=== PATIENT | male | born 1970 | race Two or more races ===

== ENCOUNTER 2016-05-22 14:54 | Observation (INO) | payer OTHER ==
[~2016-05-22] VITALS: Ht 170.2 cm; Wt 75.2 kg
[2016-05-22] VITALS (9 sets, daily range): BP systolic 107–143; BP diastolic 66–90; PULSE 59–78; RESP 14–20; O2SAT 97–100
--- NOTE | 2016-05-22 15:10 | ED.REPORT ---
HPI-Chest Pain 40 and Over Date of Service May 22, 2016 ED Provider: Shahnaz Fletcher MD The patient is a 45 year old male who was sent to the emergency department from [facility] for a positive troponin of 0.320. The patient has experienced intermittent chest tightness with exertion over the last 4-6 weeks. The pain is located to the right-side of his chest and radiates into his right shoulder. He has also noticed shortness of breath with the pain. His symptoms are resolved with rest. His last episode was 10 minutes ago. He denies nausea, diaphoresis, lower extremity swelling. He is a former smoker and quit 10 years ago. He denies history of hypertension or diabetes. Nursing Notes Stated Complaint: CHEST PAIN Chief Complaint: Chest Pain Nursing Notes Reviewed: Yes Allergies: Coded Allergies: No Known Allergies (Unverified , 05/22/16) Scheduled Krill Oil/Allen-3/Dha/Epa (Fish Oil with Krill Softgel) 1 Each Capsule.dr 1 EACH PO DAILY REMEMBERS MAYBE 1X/WEEK Multivit with Calcium,Iron,Min (Therapeutic M) 1 Each Tablet 1 EACH PO DAILY REMEMBERS MAYBE 1X/WEEK Scheduled PRN Acetaminophen (Acetaminophen) 325 Mg Tablet 235-650 MG PO Q4H PRN PRN BACK PAIN General Time Seen by MD: 15:06 Chief Complaint Chest pain Hx Obtained From: Patient, Spouse Arrived By: Walk-in Sudden in Onset?: No Onset Occurred: More than a week ago... (4 weeks) Symptom Duration: Intermittent Location: : Chest right Quality: Painful (tightness) Radiation: : Shoulder right Migration/Movement: Reports: None Severity: Current: Moderate Severity: Maximum: Severe Recent Healthcare: No recent hospitalization, Recent doctor visit Similar Sx Previous: Yes Past Medical History Past Medical History None Family History Noncontributory Smoking History Former Smoker Social History Other Social History: Good social support, , Local resident Ambulatory Status Independent Review of Systems Respiratory: Reports: Dyspnea on exertion, Shortness of breath Cardiovascular: Reports: Chest pain GI: Denies: Nausea Musculoskeletal: Denies: Extremity swelling Skin: Denies Diaphoresis Complete sys rev & neg: except as marked. Physical Exam Initial Vital Signs Vital Signs (First) Date Time Temp Pulse Resp B/P Pulse Ox O2 Delivery O2 Flow Rate FiO2 05/22/16 14:56 35.6 72 16 122/78 97 Room Air Initial VS: Reviewed Head / Eyes: Atraumatic, Normocephalic, PERRL ENT: Mucous membranes moist, Conjunctiva normal, No scleral icterus Neck: Supple, Non-tender, Full range of motion Lymphatic: No lymphadenopathy Extremities: Vascular intact, Neuro intact, No swelling, No tenderness Skin: Warm, Dry, No cyanosis Neurologic: Alert, Oriented, Nonfocal Psychiatric: Mood/affect normal, Behavior normal, Normal thought content General/Constitutional: Awake, Alert, No acute distress, Well appearing Respiratory / Chest: Atraumatic, Breath sounds NL, Breath sounds = bilat, No respiratory distress, No rales, No rhonchi, No wheezing, No stridor, No chest tenderness Cardiovascular: Heart rate NL, Regular rhythm, Heart sounds NL, No gallop, No murmurs, No rubs, Peripheral circulation NL, Pulses = bilaterally, No gross BP differential Abdomen: Atraumatic, Soft, Non-tender, McBurney's non-tender, No guarding, No rebound, BS normoactive, No distention, No hernia, No palpable mass Interpretation & Diagnostics Lab Results Interpretation Result Diagram: 05/22/16 1603 05/22/16 1603 Test 05/22/16 16:03 White Blood Count 8.4th/mm3 (3.8-10.1) Red Blood Count 4.46mil/mm3 (4.40-5.80) Hemoglobin 12.5g/dL (13.8-17.2) Hematocrit 37.1% (41.0-50.0) Mean Corpuscular Volume 83.2fL (81-100) Mean Corpuscular Hemoglobin 28.0pg (27.0-35.0) Mean Corpuscular Hemoglobin Concent 33.7% (32.0-37.0) Red Cell Distribution Width 13.6% (12.3-15.4) Platelet Count 287bil/L (150-400) Neutrophils (%) (Auto) 48.6% (40-74) Lymphocytes (%) (Auto) 30.2% (14-46) Monocytes (%) (Auto) 7.9% (4-12) Eosinophils (%) (Auto) 12.5% (0-5) Basophils (%) (Auto) 0.6% (0-3) Sodium Level 137mEq/L (134-144) Potassium Level 4.3mEq/L (3.5-5.2) Chloride Level 100mEq/L (97-108) Carbon Dioxide Level 26mmol/L (18-29) Blood Urea Nitrogen 16mg/dL (6-24) Creatinine 0.90mg/dL (0.76-1.27) Estimat Glomerular Filtration Rate 97mL/min (>59) Glucose Level 106mg/dL (60-99) Calcium Level 9.3mg/dL (8.5-10.1) Magnesium Level 1.9mg/dL (1.6-2.6) Total Bilirubin 0.2mg/dL (0.0-1.2) Aspartate Amino Transf (AST/SGOT) 20U/L (0-50) Alanine Aminotransferase (ALT/SGPT) 18U/L (0-44) Alkaline Phosphatase 69U/L (25-150) Troponin T 0.260ug/L (0.0-0.011) Total Protein 7.4g/dL (6.4-8.4) Albumin 4.1g/dL (3.4-5.0) Hold Quinones Top Tube Received (Received) ECG Interpretation ECG Interpretation: Sinus rhythm with a rate of [address] elevations Very slight ST depressions in V4-V6 T wave inversions in aVR and aVL Time: 15:10 Interpreted by: ED physician X-Ray Chest Interpretation Chest Xray Interpretation: IMPRESSION: No acute process. Dictated by: Ingris Sweeney M.D. on 05/22/2016 at 15:36 Interpretation / Wet Read by: Interpret - Radiologist Re-Eval/Medical Decision Med Decision/Clinical Course 45-year-old male with recent diagnosis of hyperlipidemia sent here from outside facility for elevated troponin. Intermittent chest pain for the last 4-6 weeks worse with exertion. Differential diagnosis includes but is not limited to non- ST elevation VT versus stable versus unstable angina versus ST elevation VT. EKG does not show ST elevation VT, however, patient does have positive troponin. I discussed the case with crime scene photographer who requested heparin and Plavix, in addition to aspirin, which I have given. The patient has been accepted by hospitalist for admission for non-ST elevation VT. He is aware and amenable to plan at this time. Source of Hx: Old records, Family Re-Evaluation/Progress Note: Rechecked the patient. Discussed plan for admission. All questions were addressed. Consultation #1: Referral / Consult Name: Jordy Arzola MD Consulted With: Cardiology Requested Call at: 17:02 Call Returned at: 17:03 Raw Sampler: Agrees with eval, Agrees with plan Note: He was only on-call for NSTEMI patient's until 1600. He would like us to call the new on-call physician. Consultation #2: Referral / Consult Name: Mitch Norris MD Consulted With: Cardiology Requested Call at: 17:04 Call Returned at: 17:10 Raw Sampler: Agrees with eval, Agrees with plan Consultation #3: Referral / Consult Name: Delfin Crystal MD Consulted With: Hospitalist Requested Call at: 17:11 Call Returned at: 17:18 Raw Sampler: Will see patient, Agrees with eval, Agrees with plan, Accepts admit Counseled Regarding: Diagnosis, Lab results, Need for admission Discharge & Departure Primary Impression: NSTEMI (non-ST elevated myocardial infarction) Disposition: ADMITTED TO HOSPITAL Discharge Condition All VS Reviewed: Yes Condition: Stable Scribe Attestation Portions of this note were transcribed by Kallie Marquez. I, Dr. Fowler personally performed the history, physical exam and medical decision-making; I reviewed and confirmed the accuracy of the information in the transcribed note. Signed by: Carmelo Baldwin, 05/22/2016 and [id number]. Shahnaz Fletcher MD May 22, 2016 15:10 Kallie Marquez May 22, 2016 15:20
--- NOTE | 2016-05-22 15:38 | DRSVH ---
PROCEDURE: X-RAY CHEST ONE VIEW, PORTABLE ([id number]) INDICATIONS: CHEST PAIN TECHNIQUE: One view of the chest was acquired. COMPARISON: None. FINDINGS: Surgical changes and devices: None. Lungs and pleura: No pleural effusions or pneumothorax. Lungs are clear. Mediastinum: Mediastinal contours appear normal. Heart size is normal. Bones and chest wall: No suspicious bony lesions. Overlying soft tissues appear unremarkable. IMPRESSION: No acute process. Dictated by: Ingris Sweeney M.D. on 05/22/2016 at 15:36 Approved by: Ingris Sweeney M.D. on 05/22/2016 at 15:36
[2016-05-22 16:16] LABS: BASOPHILS % (AUTO) 0.6 % (0-3); EOSINOPHILS % (AUTO) 12.5 % (0-5); MONOCYTES % (AUTO) 7.9 % (4-12); Mean Corpuscular Volume 83.2 fL (81-100); NEUTROPHILS % (AUTO) 48.6 % (40-74); Platelet Count 287 bil/L (150-400)
[2016-05-22 16:47] LABS: Magnesium 1.9 mg/dL (1.6-2.6)
[2016-05-22 16:49] LABS: TROPONIN T 0.26 ug/L (0.0-0.011)
[2016-05-22] MEDS ORDERED: Heparin 25K Unit/500mL 0.45 NS 25,000 UNIT in IV Premix 1 EACH IV ONE (17:05)
[2016-05-22] MEDS ORDERED: Heparin 5,000 Unit/mL Inj IVPUSH ONE (17:05)
[2016-05-22] MEDS ORDERED: 0.9% Sodium Chloride 1,000 ML IV SCH (17:22)
[2016-05-22] MEDS ORDERED: KRIL1CAP10 PO (17:23)
[2016-05-22] MEDS ORDERED: ACET325T51 PO (17:24)
[2016-05-22] MEDS ORDERED: MULT-140 PO (17:24)
[2016-05-22] MEDS ORDERED: Ondansetron 2 mg/mL 2 mL Inj IVPUSH PRN (17:25)
[2016-05-22] MEDS ORDERED: Polyethylene Glycol (PEG) 17 Gm Powder PO PRN (17:25)
[2016-05-22] MEDS ORDERED: Senna-Docusate 8.6-50 mg Tablet PO PRN (17:25)
[2016-05-22] MEDS ORDERED: Alum-Mag Hydrox-Simeth 30 mL Suspension PO PRN (17:25)
[2016-05-22 18:04] LABS: Creatine Kinase 146 U/L (21-232)
[2016-05-22] MEDS ORDERED: Heparin 5,000 Unit/mL Inj IVPUSH PRN (18:55)
[2016-05-22] MEDS ORDERED: Heparin 25K Unit/500mL 0.45 NS 25,000 UNIT in IV Premix 1 EACH IV SCH (18:55)
--- NOTE | 2016-05-22 19:25 | NUR ---
ED to PCC Pt arrived from ED to PCC at approximately 1835. Pt able to stand and walk to bed without assist. VSS. at bedside. asks to be called to translate for with speaker phone. Suggested our food service aide. unable to stay this night requests to be called. Skin assessment done no visible guardado or bruising. Pt denies tightness or chest pain at this time. Pt denies SOB. Transferred care to police shift commander at 1845. Care continues.
--- NOTE | 2016-05-22 20:40 | PCM.HPMED ---
Subjective Date of Service May 22, 2016 Primary Provider: Admitting Physician: Delfin Crystal MD Primary Care Physician: Francisco Cage MD Attending Physician: Delfin Crystal MD Chief Complaint: Chest pain History of Present Illness: 45 year old male who was sent to the emergency department from [facility] for a positive troponin of 0.320. The patient has experienced intermittent chest tightness with exertion over the last 4-6 weeks. The pain is located to the right-side of his chest and radiates into his right shoulder. He has also noticed shortness of breath with the pain. His symptoms are resolved with rest. His last episode was 10 minutes ago. He denies nausea, diaphoresis, lower extremity swelling. He is a former smoker and quit 10 years ago. He denies history of hypertension or diabetes. Review of Systems: Gen.: No fevers chills weight loss weight gain Eyes: no visual disturbances or blurring vision HEENT: No nose/throat drainage, no pain in ears or throat, no hearing loss bloody nose last week Lymph: No lymph nodes noted Cardiac: No orthopnea, PND, palpitations , pedal edema + chest pain, dyspnea on exertion and exertional pain Pulmonary: no cough, wheezing or bringing up of sputum GI: No anorexia nausea vomiting blood or black in the stool : no dysuria hematuria urinary frequency or decrease in urine output Musculoskeletal: Joint swelling no joint pain no new muscle aches or back pain Neuro: No syncope, seizures no loss of consciousness no new focal weakness, numbness or tingling Psychiatric: New new anxiety insomnia or depression Endocrine: No new heat or cold intolerances polyuria or polydipsia Hematology: No lymphadenopathy or easy bleeding or bruising noted skin: No new rashes, stasis dermatitis Allergies Coded Allergies: No Known Allergies (Unverified , 05/22/16) Home Medications Krill Oil/King-3/Dha/Epa (Fish Oil with Krill Softgel) 1 Each Capsule.dr 1 EACH PO DAILY REMEMBERS MAYBE 1X/WEEK Multivit with Calcium,Iron,Min (Therapeutic M) 1 Each Tablet 1 EACH PO DAILY REMEMBERS MAYBE 1X/WEEK Scheduled PRN Acetaminophen (Acetaminophen) 325 Mg Tablet 235-650 MG PO Q4H PRN PRN BACK PAIN PMH PMH none Surgical history none Social history patient does not smoke, drinks 2 beers a month Family history no family history of early coronary artery disease hypertension or diabetes Social History Hx Alcohol Use: Yes (VERY RARE) Hx Substance Use: No Smoking Status: Former Smoker Exam Vital Signs Vital Sign - Last Date Time Temp Pulse Resp B/P Pulse Ox O2 Delivery O2 Flow Rate FiO2 05/22/16 18:45 36.8 60 128/86 100 Room Air 05/22/16 18:23 18 Exam Gen.- A+ O 3 no apparent distress. Well-nourished male sitting in bed Eyes- open conjunctiva clear, pupils equal nonicteric Mouth- oral mucosa moist, no exudate ENT- ears normal, nose normal Neck- supple/trach midline CVS- RRR no murmur or gallop Lungs- CTA GI- NABS/NT soft Musc- moving 4 no obvious deformity Neuro- cranial nerves II through XII intact to gross examination, nonfocal Skin- warm and dry, no rashes/lesions/wounds noted Psych- pleasant and appropriate, Lab and Diagnostics Labs LFTs WNL, troponin 0.260 with normal CK/MB, TSH 0.532 Result Diagram: 05/22/16 1603 05/22/16 1603 X-Rays, CTs and MRIs CXR normal 12-lead ECG Concurrently reviewed by me sinus with a rate of 70 QTc [address] segment changes Assessment & Plan 45-year-old male normal EKG and CK/MB but elevated troponin with chest pain and dyspnea with exertion ongoing. Patient is started on a heparin drip in the emergency room and chest pain-free at rest. One could make a reasonable argument for taking him directly to cath based on his story however I will go ahead and order stress test unless it is canceled prior to being obtained because cardiology sees the patient and takes him for catheterization. He got a loading dose of Plavix in the emergency room I am not going to continue it at this point in time. This does not seem to be ACS or unstable angina but chest pain that has a strong likelihood by history of being cardiac in origin. My understanding was cardiology was consult that from the emergency room but has not yet seen the patient. Chest pain- as above aspirin, beta gina, atorvastatin Prophylaxis- DVT patient's already on a heparin drip Disposition- from home full code. I have not yet ordered a diet for this patient as initially it was built to me as something that might go directly to cath, and now that is after midnight and I want to do a stress test on him I am not going to order a diet for fear that we will feed him breakfast. Delfin Crystal MD May 22, 2016 20:39
[2016-05-22 22:32] LABS: TROPONIN T 0.278 ug/L (0.0-0.011)
[2016-05-22 23:23] LABS: APPEARANCE,URINE CLEAR (CLEAR,HAZY); COLOR,URINE YELLOW (YELLOW); OCCULT BLOOD,URINE NEGATIVE (NEGATIVE); PH,URINE 6.5 (5.0-8.0); UROBILINOGEN,URINE NORMAL (NORMAL)
[2016-05-23] VITALS (19 sets, daily range): BP systolic 93–155; BP diastolic 59–104; PULSE 51–70; RESP 9–20; O2SAT 96–100
[2016-05-23] MEDS: Sodium Chloride LOK Flush 10 mL Syringe IVFLUSH SCH ×2 (00:30→08:30)
--- NOTE | 2016-05-23 06:22 | NUR ---
Chest Pain At approximately 0500 pt called to report he was having CP. EKG ordered and no significant changed noted. BP 155/104 HR 70's SpO2 100%. Pt is scheduled for Stress test this am and unable to have nitro before that procedure. Administered 2mg Morphine and effective, no further c/o CP. BP after administration 149/89. Pt is on Heparin gtt as well at 1050 u/hr per cardiac protocol. VSS and Tele SR 60's to 70's
[2016-05-23 07:15] LABS: BASOPHILS % (AUTO) 0.5 % (0-3); MONOCYTES % (AUTO) 7.1 % (4-12); Mean Corpuscular Hemoglobin 28.2 pg (27.0-35.0); Mean Corpuscular Volume 82.6 fL (81-100); NEUTROPHILS % (AUTO) 42.7 % (40-74); Platelet Count 287 bil/L (150-400)
[2016-05-23] MEDS ORDERED: 0.9% Sodium Chloride 1,000 ML IV ONE (12:15)
--- NOTE | 2016-05-23 12:22 | NUR ---
IV/anxiety IV therapy placing 2nd IV in left arm for [employer] sales manager cath procedure this afternoon. Pt anxious, at bedside, asking for SW consult. SW notified. Pt states he can wait till called down to concrete laborer for anxiety medicine. Care continues.
--- NOTE | 2016-05-23 12:38 | CONS ---
[address] [address] CONSULTATION REPORT PATIENT: ISRAEL BLANCO : 1970 MR#: [id number] ADMIT: 05/22/2016 JOB ID: [id number] DATE OF SERVICE: 05/23/2016 CARDIOLOGY CONSULT NOTE: CHIEF COMPLAINT: I was asked by the Hospitalist team to consult on this patient given anginal symptoms. HISTORY OF PRESENT ILLNESS: The patient is a 45-year-old man. He is not on any medications other than fish oil. He tells me he has been having about six weeks of chest discomfort occurring with exertion. He describes it as a chest tightness with some associated shortness of breath with radiation to the right shoulder and chest wall with some associated numbness. This always stops with rest. He has been noticing it getting somewhat worse and went to [facility], and they transferred him here. Since arrival, he has had an elevated troponin, which has not trended upward or downward. He has no chest pain. No chest pressure. He has been put on heparin. He was also given a loading dose of Plavix last night. Prior to six weeks ago, he did not have problems with chest pain, chest pressure, orthopnea, PND, lower extremity edema, palpitations, presyncope, or syncope. PAST MEDICAL HISTORY/PROBLEM LIST: Hyperlipidemia. CURRENT MEDICATIONS: Include: 1. Rowland-3 fish oil. 2. Metoprolol 25 b.i.d. 3. Aspirin 81 mg a day. 4. Heparin protocol. 5. Lipitor 40 q.h.s. 6. Other p.r.n. medications. ALLERGIES: No known drug allergies. SOCIAL HISTORY: No tobacco use. Rare alcohol use. FAMILY HISTORY: No history of early coronary artery disease, hypertension, or diabetes. REVIEW OF SYSTEMS: Overall health: No fevers, chills, night sweats, or weight loss. GI: No problems with ulcers or blood in his stool. : No dysuria, no hematuria. Pulmonary: No history of lung disease. No shortness of breath. Endocrine: No heat or cold intolerance. No history of diabetes mellitus. Neuro: No history of chronic headaches. Heme: No easy bruising or bleeding. Musculoskeletal: No joint swelling or pain. Derm: No rash or skin breakdown. ENT: No sore throat or difficulty swallowing. Ophtho: No vision changes. Psych: No acute issues. All review of systems on 12-point review of systems are negative. PHYSICAL EXAMINATION: Blood pressure is 124/79, heart rate is 50s to 70s. He is afebrile. Sats are 98% on room air. General: In no acute distress. Speaking in full sentences without apparent shortness of breath. Head and neck exam: Normocephalic, atraumatic. Neck: No obvious JV distention. No carotid bruits appreciated. Heart exam: Regular rate and rhythm. No obvious murmurs, gallops, or rubs appreciated. Lungs are clear to auscultation. Back: No CVA tenderness to palpation. Abdomen: Soft, nondistended, nontender. Extremities: Warm, no appreciable edema, 1 to 2+ distal pulses. Skin without breakdown appreciated. Neuro: He is alert and oriented x3. Gait is not tested. Psych: Appropriate mood and affect. ENT: No erythema of the oropharynx. Ophtho: Vision is grossly normal. LABORATORIES: Show white count 8.5, H and H of 13.6 and 39.8, platelets 287,000, mildly elevated eosinophils. Chemistry today shows sodium 139, chloride and bicarb of 102 and 21, respectively, BUN and creatinine of 13 and 0.88. Troponins in the range of 0.28 to 0.29. DIAGNOSTIC STUDIES: EKG shows sinus rhythm with ST changes in the lateral leads. Imaging shows a chest x-ray that shows no acute process. IMPRESSION: The patient has had approximately six weeks of exertional anginal symptoms. He finally came in with worsening of the symptoms, although he has no chest discomfort at rest. Troponins are elevated and have not changed significantly. He has EKG abnormalities. PLAN: 1. Continue with current medications. 2. Will arrange for an echocardiogram. 3. I have spoken to him about cardiac catheterization. I have explained the risks and benefits to him. I have also discussed the different types of findings. Nothing to do, multi-vessel disease requiring surgeries, single-vessel disease amenable to stenting. I discussed the different types of stents including bare metal stents and drug-eluting stents. Discussed the different issues with endothelialization, risks of restenosis, as well as duration of Plavix. He denies any symptoms such as bleeding or upcoming surgeries that would make him not able to take Plavix for a year or more. He has no issues financially where he would could not afford to take that medication. 4. I have consented him for cardiac catheterization. Will proceed with this today. I spent one hour reviewing this patient's chart, speaking with the patient and discussing the nature of his current problem and the details of cardiac cath. I answered his questions. SHEFALI
[2016-05-23] MEDS ORDERED: 0.9% Sodium Chloride 1,000 ML ONE (12:50)
[2016-05-23] MEDS ORDERED: Heparin 1,000 Units/500 mL NS Premix IV ONE (12:50)
[2016-05-23] MEDS ORDERED: Heparin 1,000 Unit/mL 10 mL Inj ONE (12:51)
[2016-05-23] MEDS ORDERED: Nitroglycerin 50,000 mcg/250 mL D5W Premix IV ONE (12:51)
--- NOTE | 2016-05-23 13:38 | NUR ---
Received Received from floor about 1330 to await heart cath. VSS. IV Heparin restarted per MD order and titrated to 1100units/hr per PTT. Tele SB. Continue to monitor.
--- NOTE | 2016-05-23 13:54 | NUR ---
PCC to [facility] Pt transported to lab animal technologist at approximately 1300. Heparin stopped. Bilateral pulses marked. Pre medications given: Ativan, Benadryl, Famotidine, ASA and NS started. Pt accompanied by to [facility]. [facility] Booklet and Angio/Stent booklet given to pt and . Education given. Ayaka BANEGAS from [facility] called at approximately 1320 pt was bumped, waiting in [facility] for cath procedure. Care continues.
[2016-05-23] MEDS ORDERED: fentaNYL-PF 50 mCg/mL 2 mL Inj ONE (14:38)
--- NOTE | 2016-05-23 15:47 | PCM.PNMED ---
Subjective Date of Service May 23, 2016 Subjective He is doing well. No chest pain. He has a 6 week history of exertional chest pain relieved by rest. No nausea vomiting or diaphoresis. No indigestion or dyspeptic symptoms. No diarrhea or constipation. Exam Vital Signs Vital Sign - Last Date Time Temp Pulse Resp B/P Pulse Ox O2 Delivery O2 Flow Rate FiO2 05/23/16 15:35 53 9 103/61 05/23/16 15:35 98 Room Air 05/23/16 09:20 36.8 Intake and Output 05/22/16 05/22/16 05/23/16 Cumulative From/Thru 15:00 23:00 07:00 05/22/16 14:56 - 05/23/16 06:30 Intake Total 999 ml 300 ml 1299 ml Output Total 650 ml 650 ml Balance 999 ml -350 ml 649 ml Intake Oral 300 ml 300 ml IV Total 999 ml 999 ml Output Urine Total 650 ml 650 ml Exam Alert oriented 3, no distress Anicteric sclerae. Neck supple. Lungs are clear with normal effort. Heart is regular. Abdomen soft nontender Extremities edema good pedal pulses IVs and Medications Medications Reviewed: Medications were reviewed in detail Lab and Diagnostics Result Diagram: 05/23/16 0653 05/23/16 0653 X-Rays, CTs and MRIs CXR normal 12-lead ECG Concurrently reviewed by me sinus with a rate of 70 QTc [address] segment changes Assessment & Plan 45-year-old male normal EKG and CK/MB but elevated troponin with chest pain and dyspnea with exertion ongoing. Patient is started on a heparin drip in the emergency room and chest pain-free at rest. One could make a reasonable argument for taking him directly to cath based on his story however I will go ahead and order stress test unless it is canceled prior to being obtained because cardiology sees the patient and takes him for catheterization. He got a loading dose of Plavix in the emergency room I am not going to continue it at this point in time. This does not seem to be ACS or unstable angina but chest pain that has a strong likelihood by history of being cardiac in origin. My understanding was cardiology was consult that from the emergency room but has not yet seen the patient.(Per history and physical) 1. N STEMI. Continue current medical regimen. Anticipate cardiology will take him to the catheterization lab for an angiogram and possible PCI if appropriate today. We will also assess his lipid profile. 2. DVT prophylaxis is provided by ongoing heparin drip. He is full resuscitation. Pain Evaluation: Adequate Pain Control Resuscitation Status: CPR: Attempt Resuscitation Time spent 30 minute Charles Ohara MD May 23, 2016 15:47
--- NOTE | 2016-05-23 16:03 | NUR ---
Received Received from laborer [facility] about 1530. VSS. Right groin without bleeding or hematoma. Groin precautions reviewed. Verbalizes understanding. Denies pain. NS at 100ml/hr infusing per order. at bedside.
--- NOTE | 2016-05-23 16:21 | DRSVH ---
[facility] [address] [place] [address] Echocardiogram Report Name: ISRAEL BLANCO Study Date: 05/23/2016 Height: 67 in Hospital Exam Location: [facility] Weight: 167 lb Gender: Male BSA: 1.9 m2 : 1970 Age: 45 yrs BP: 141/86 mmHg Reason For Study: Chest pain Performed By: Olesya Medeiros Referring Physician: RUDY SHEFFIELD Interpretation Summary 1. Normal left ventricular size and wall thickness with wall motion abnormalities as noted below. Overall, the EF appears preserved at 55 to 60% 2. Normal right ventricular size and systolic function. 3. No valvular pathology appreciated There is no old study for comparison Procedure: A two-dimensional transthoracic echocardiogram with color flow and Doppler was performed. The study quality was technically good. There is no prior echocardiogram noted for this patient. The patient was in normal sinus rhythm during the exam. Left Ventricle: The left ventricle is normal in size. There is normal left ventricular wall thickness. There is mild proximal septal thickening noted. The ejection fraction is estimated to be 55-60%. Hypokinesis of the basal inferior/inferolateral wall, apical anterior septum and inferior septum and possible mild hypokinesis of the anterior apex. Right Ventricle: The right ventricle is normal size. The right ventricular systolic function is normal. Atria: The left atrial size is normal. Right atrial size is normal. The interatrial septum is intact with no evidence for an atrial septal defect. Mitral Valve: The mitral valve is normal in structure and function. There is no mitral regurgitation noted. Aortic Valve: The aortic valve is trileaflet. The aortic valve opens well. No aortic regurgitation is present. Tricuspid Valve: The tricuspid valve is normal in structure and function. There is a trace or physiologic amount of tricuspid regurgitation. The right ventricular systolic pressure is estimated at 20 mmHg assuming a right atrial pressure of 3 mm Hg. Pulmonic Valve: The pulmonic valve is normal in structure and function. There is no pulmonic valvular regurgitation. Great Vessels: The aortic root is normal size. The dimensions of the ascending aorta are normal. The IVC is of normal diameter and collapses greater than 50% with a sniff. This suggests a low right atrial pressure of 3 mm Hg. Pericardium/ Pleura There is no pericardial effusion. There is no pleural effusion. MMode/2D Measurements & Calculations LVIDd: 5.1 cm LA dimension: 3.8 cm RA long axis Ao root diam LVIDs: 3.5 cm FS: 31.5 % LA A2 area: 16.2 cm RA area Aortic Jxn: 2.7 cm IVSd: 1.2 cm LA A4 area: 15.3 cm asc Aorta Diam LVPWd: 0.83 cm LA length (vol) : 13.2 cm RA vol Ao Arch Diam (Prox LA vol: 42.8 ml : 36.5 ml Trans): 2.5 cm LA vol index RA : 19.5 mm2 IVC diam: 1.4 cm LV call. diameter/BSA LV sys. diameter/BSA RVD1 (basal) RVD2 (mid): 2.6 cm (cm/m^2): 2.7 (cm/m^2): 1.9 Doppler Measurements & Calculations Ao V2 max MV E max pedro MV E/A: 1.3 TR max pedro : 156.1 cm/sec : 80.8 cm/sec Med Peak E' Pedro : 203.1 cm/sec Ao max P.7 mmHg MV A max pedro TR max PG Ao mean P.8 mmHg : 62.7 cm/sec E/E' med: 11.5 : 16.5 mmHg MV P1/2t Lat Peak E' Pedro PA V2 max : 64.3 msec : 82.9 cm/sec E/E' lat: 7.2 PA mean PG E/e' average: 9.4 Pulm A Revs Dur PA Accel Time : 0.15 sec MV A dur: 0.13 sec MV dec time: 0.22 sec MV P1/2t max pedro Ao V2 mean PA V2 mean : 115.2 cm/sec : 60.5 cm/sec MVA(P1/2t) Ao V2 VTI: 38.7 cm : 3.4 cm2 Pulm A Janneth Dur - MV A Dur: -0.02 msec Reading Physician:04:04 PM
--- NOTE | 2016-05-23 17:08 | NUR ---
Care transfer Care transferred to Sam Davidson RN. No change in assessment. Report to Fabi Bhatt RN.
--- NOTE | 2016-05-23 17:44 | NUR ---
Social Work: Screen D: Per EMR review, pt is a 45 year old male admitted for NON STEMI. Pt is [employer] insurance. PCP is Francisco Cage MD. NOK is pt's spouse, Lottie Post. Pt declined advanced directives information during admission. Readmit score is low, 0/8. Pt lives in [place] with his spouse. He is I at baseline. EMR reviewed; pt underwent cardiac cath today. No social work needs or barriers identified at this time. A: Pt who is I at baseline. P: Anticipate pt to discharge home with no sw needs; [employer]OR to continue to follow if needs arise. NERY Doss
[2016-05-23] MEDS ORDERED: 0.9% Sodium Chloride 250 ML BOLUS IV PRN (18:05)
[2016-05-23] MEDS ORDERED: Atropine 1 mg/10 mL (Code) Syringe IVPUSH PRN (18:05)
[2016-05-23] MEDS ORDERED: Ondansetron 2 mg/mL 2 mL Inj IVPUSH PRN (18:05)
[2016-05-23] MEDS ORDERED: Sodium Chloride LOK Flush 10 mL Syringe IVFLUSH PRN (18:05)
[2016-05-23] MEDS ORDERED: 0.9% Sodium Chloride 400 ML (4 HRS) IV ONE (18:05)
--- NOTE | 2016-05-23 18:10 | CS94 ---
[address] [address] DIAGNOSTIC CARDIAC CATHETERIZATION PATIENT: ISRAEL BLANCO : 1970 MR#: [id number] ADMIT: 05/22/2016 JOB ID: [id number] SERVICE DATE: 05/23/2016 PROCEDURES PERFORMED: Left heart catheterization with coronary angiography. INDICATIONS: This is a gentleman with progressive anginal symptoms and labs consistent with a non-ST elevation OK. He presents for further assessment by cardiac catheterization. DESCRIPTION OF PROCEDURE: Informed consent was obtained. Patient brought to the catheterization laboratory. Bilateral groins are prepped and draped in sterile fashion. The right femoral artery was anesthetized with lidocaine. Using modified Seldinger technique and a micropuncture kit access was obtained and a 5-Mauritanian sheath was advanced. Next, a 5-Mauritanian JL4 catheter was advanced over a wire and used to cannulate the left coronary artery and angiographic views obtained. This catheter was removed and a 5-Mauritanian JR4 catheter was advanced over a wire and used to cannulate the right coronary artery and angiographic views obtained. This catheter was removed and an angled pigtail catheter was advanced to the left ventricle under fluoroscopic guidance. Left ventricular pressure readings were obtained and following pullback aortic pressure changes were obtained. The case was ended. Angiography of the right femoral access site was reviewed prior to achieving hemostasis with manual compression and no complications. FINDINGS: CORONARIES: 1. Left main: The left main has some mild proximal disease. 2. Left anterior descending artery: This vessel has moderate disease. In the proximal segment, just after the 1st septal subway car repairer into the mid vessel, the vessel is occluded. It has filling via collaterals. The distal vessel appears reasonable in size and caliber, without obstructive lesions appreciated. There is also a principal diagonal which is a branching vessel which supplies an intermediate distribution. It is diffusely diseased, with evidence of at least 60% stenosis in its mid segment. 3. Circumflex artery: The continuation of the circumflex artery is occluded. There is a first obtuse marginal branch which is a branching vessel which has evidence of a 98% stenosis with KAYLYN II filling distally. 4. Right coronary artery: This vessel was diffusely disease with mild to moderate disease throughout the course of the proximal and mid conduit segment. The PDA has evidence for stenosis estimated in the range of at least 60%. There are [id number] collaterals filling the left anterior descending artery. HD: The end-diastolic pressure is 16 (post contrast). IMPRESSION: Evidence for significant coronary artery disease with an occluded and collateralized left anterior descending artery. Evidence for high-grade stenosis in the obtuse marginal branch and an occluded continuation of the circumflex, which is likely the culprit lesion in this patient's presentation, as well as disease affecting the right coronary artery, most significant in the PDA. PLAN: Given the patient's age and the multivessel nature of the disease, consult will be obtained for possible multi-vessel intervention at a center where the chronically occluded left anterior descending artery may be opened. KASANDRAD
--- NOTE | 2016-05-23 18:18 | NUR ---
DANIEL to [facility] Patient arrived to [facility] via kajal with Sam BANEGAS. Right intact, no swelling, no edema, no bleeding. Bilateral pulses palpable. Pt resting and visiting . Care continues.
[2016-05-23] MEDS ORDERED: Heparin 25K Unit/500mL 0.45 NS 25,000 UNIT in IV Premix 1 EACH IV SCH (22:00)
[2016-05-24 04:06] VITALS: BP 122/85; PULSE 66; RESP 20; O2SAT 98
--- NOTE | 2016-05-24 05:13 | NUR ---
Ambulation Pt off bedrest at 1930; stood to bedside for use of urinal, denied dyspnea or dizziness. Pt resting throughout shift, denied CP. Heparin gtt currently infusing at 1150 units/hr. After standing for weight on scale, pt unsteady on feet per aide; pt encouraged to call for assistance with activity. Pt verbalized understanding. NPO after midnight. MANDO. RA.
[2016-05-24 05:34] VITALS: PULSE 63
[2016-05-24 08:38] VITALS: BP 125/76; PULSE 64; RESP 16; O2SAT 98
[2016-05-24 09:10] VITALS: PULSE 66
--- NOTE | 2016-05-24 09:29 | PCM.PNMED ---
Subjective Date of Service May 24, 2016 Subjective Patient is comfortable. He was noted to have two-vessel disease with LAD and circumflex requesting OCs. Cardiology feels he is better served in [facility] because of a technically difficult LAD stenosis PCI needed. The patient denies chest pain or dyspnea overnight. No anxiety or depression. No nausea or abdominal pain. Exam Vital Signs Vital Sign - Last Date Time Temp Pulse Resp B/P Pulse Ox O2 Delivery O2 Flow Rate FiO2 05/24/16 09:10 66 05/24/16 08:38 36.2 16 125/76 98 Room Air Intake and Output 05/23/16 05/23/16 05/24/16 Cumulative From/Thru 15:00 23:00 07:00 05/22/16 14:56 - 05/24/16 06:22 Intake Total 175 ml 366 ml 1840 ml Output Total 500 ml 800 ml 1950 ml Balance -325 ml -434 ml -110 ml Intake Oral 0 ml 200 ml 500 ml IV Total 175 ml 166 ml 1340 ml Output Urine Total 500 ml 800 ml 1950 ml # Voids 2 2 Exam Neurontin 3, no distress. Fluent speech. Lungs are clear with normal rate and effort Heart his rhythm without murmur gallop or rub Abdomen soft nontender Extremities her feet edema. Radial and pedal pulses. IVs and Medications Medications Reviewed: Medications were reviewed in detail Lab and Diagnostics Result Diagram: 05/24/16 0400 05/24/16 0400 X-Rays, CTs and MRIs CXR normal 12-lead ECG Concurrently reviewed by me sinus with a rate of 70 QTc [address] segment changes Assessment & Plan 45-year-old male normal EKG and CK/MB but elevated troponin with chest pain and dyspnea with exertion ongoing. Patient is started on a heparin drip in the emergency room and chest pain-free at rest. One could make a reasonable argument for taking him directly to cath based on his story however I will go ahead and order stress test unless it is canceled prior to being obtained because cardiology sees the patient and takes him for catheterization. He got a loading dose of Plavix in the emergency room I am not going to continue it at this point in time. This does not seem to be ACS or unstable angina but chest pain that has a strong likelihood by history of being cardiac in origin. My understanding was cardiology was consult that from the emergency room but has not yet seen the patient.(Per history and physical) 1. NSTEMI. Continue current medical regimen. The patient is found to have two -vessel disease and coronary catheterization. The plan is to continue him on his current cardiac regimen and heparin drip and arrange for transfer to [facility] added today or tomorrow when they can accept him. Help is to have PCI there for correction of his two-vessel CAD. 2. DVT prophylaxis is provided by ongoing heparin drip. He is full resuscitation. Disposition is to transfer to [facility] on her able to accept the patient. Pain Evaluation: Adequate Pain Control Resuscitation Status: CPR: Attempt Resuscitation Time spent 30 minutes Charles Ohara MD May 24, 2016 09:29
[2016-05-24] MEDS ORDERED: Heparin 5,000 Unit/mL Inj IVPUSH PRN (11:40)
[2016-05-24 12:16] VITALS: BP 98/62; PULSE 56; RESP 16; O2SAT 99
[2016-05-24 15:50] VITALS: BP 105/64; PULSE 63; RESP 16; O2SAT 99
--- NOTE | 2016-05-24 18:15 | NUR ---
Transfer to [facility] Pt transferred to [facility] at 1820. Pt off floor via stretcher with all of his belongings in the company of the EMS staff and his . EMS was sent with transfer packet. Report called to MAKENZIE Samuels.
--- NOTE | 2016-05-25 08:18 | PCM.DC.MED ---
Discharge Summary Date of Service May 24, 2016 Dates of Hospitalization Date of Hospital Admission May 22, 2016 at 17:50 Date of Discharge: May 24, 2016 Providers: Admitting Physician: Delfin Crystal MD Primary Care Physician: Francisco Cage MD Attending Physician: Delfin Crystal MD Diagnosis at Time of Discharge Diagnosis at Time of Discharge 1. NSTEMI. 2. CAD with an acute stenosis of the circumflex artery and a chronic occlusion of the LAD with collateralization. Consultations Cardiology, Dr. Duval Procedures XRay, CTs & MRIs CXR normal ECG 12 Lead Concurrently reviewed by me sinus with a rate of 70 QTc [address] segment changes Cardiac Echo Impression 1. Normal left ventricular size and wall thickness with wall motion abnormalities as noted below. Overall, the EF appears preserved at 55 to 60% 2. Normal right ventricular size and systolic function. 3. No valvular pathology appreciated Invasive Procedures FINDINGS: CORONARIES: 1. Left main: The left main has some mild proximal disease. 2. Left anterior descending artery: This vessel has moderate disease. In the proximal segment, just after the 1st septal home health nurse into the mid vessel, the vessel is occluded. It has filling via collaterals. The distal vessel appears reasonable in size and caliber, without obstructive lesions appreciated. There is also a principal diagonal which is a branching vessel which supplies an intermediate distribution. It is diffusely diseased, with evidence of at least 60% stenosis in its mid segment. 3. Circumflex artery: The continuation of the circumflex artery is occluded. There is a first obtuse marginal branch which is a branching vessel which has evidence of a 98% stenosis with KAYLYN II filling distally. 4. Right coronary artery: This vessel was diffusely disease with mild to moderate disease throughout the course of the proximal and mid conduit segment. The PDA has evidence for stenosis estimated in the range of at least 60%. There are [id number] collaterals filling the left anterior descending artery. The end-diastolic pressure is 16 (post contrast). IMPRESSION: Evidence for significant coronary artery disease with an occluded and collateralized left anterior descending artery. Evidence for high-grade stenosis in the obtuse marginal branch, which is likely the culprit lesion in this patient's presentation, as well as disease affecting the right coronary artery, most significant in the PDA. PLAN: Given the patient's age and the multivessel nature of the disease, consult will be obtained for possible multi-vessel intervention at a center where the chronically occluded left anterior descending artery may be opened. Brief History 45 year old male who was sent to the emergency department from [facility] for a positive troponin of 0.320. The patient has experienced intermittent chest tightness with exertion over the last 4-6 weeks. The pain is located to the right-side of his chest and radiates into his right shoulder. He has also noticed shortness of breath with the pain. His symptoms are resolved with rest. His last episode was 10 minutes ago. He denies nausea, diaphoresis, lower extremity swelling. He is a former smoker and quit 10 years ago. He denies history of hypertension or diabetes. Hospital Course 45-year-old male normal EKG and CK/MB but elevated troponin with chest pain and dyspnea with exertion ongoing. Patient is started on a heparin drip in the emergency room and chest pain-free at rest. One could make a reasonable argument for taking him directly to cath based on his story however I will go ahead and order stress test unless it is canceled prior to being obtained because cardiology sees the patient and takes him for catheterization. He got a loading dose of Plavix in the emergency room I am not going to continue it at this point in time. This does not seem to be ACS or unstable angina but chest pain that has a strong likelihood by history of being cardiac in origin. My understanding was cardiology was consult that from the emergency room but has not yet seen the patient.(Per history and physical) 1. NSTEMI. Continue current medical regimen. The patient is found to have two -vessel disease and coronary catheterization. The plan is to continue him on his current cardiac regimen and heparin drip and arrange for transfer to [facility] added today or tomorrow when they can accept him. Help is to have PCI there for correction of his two-vessel CAD. 2. DVT prophylaxis is provided by ongoing heparin drip. He is full resuscitation. Disposition is to transfer to [facility] on her able to accept the patient. Hospital course. This patient was admitted with chest pain and a history consistent with exertional angina. It elevated troponins consistent with an NSTEMI. He was taken to the [facility] and found to have two-vessel disease, a more acute circumflex lesion and a chronic collateralized LAD lesion. Cardiology felt that multivessel PCI would be better performed at the Center in [place] with cardiothoracic backup. [facility]. Cardiology was contacted situation was discussed with them and they did accept the patient in transfer. The abdomen A she was also discussed with Dr. Ortiz [facility] hospital[facility] who will be accepting him as primary attending. The patient be transferred ACLS transport with a heparin drip Exam Vital Signs (Last) Date Time Temp Pulse Resp B/P Pulse Ox O2 Delivery O2 Flow Rate FiO2 05/24/16 15:50 36.8 63 16 105/64 99 Room Air Exam Patient was seen and examined and the day of transfer, to [facility] 05/22/16 16:03 05/22/16 22:59 05/23/16 06:53 05/23/16 16:08 Hemoglobin A1c 5.5% (4.8-5.6) Magnesium Level 1.9mg/dL (1.6-2.6) Total Bilirubin 0.2mg/dL (0.0-1.2) Aspartate Amino Transf (AST/SGOT) 20U/L (0-50) Alanine Aminotransferase (ALT/SGPT) 18U/L (0-44) Alkaline Phosphatase 69U/L (25-150) Creatine Kinase MB 5.3ng/mL (0.0-10.4) Creatine Kinase MB % % (0.0-5.0) Total Protein 7.4g/dL (6.4-8.4) Albumin 4.1g/dL (3.4-5.0) Thyroid Stimulating Hormone (TSH) 0.532uIU/mL (0.450-4.500) Hold Quinones Top Tube Received (Received) Urine Color Yellow (YELLOW) Urine Appearance Clear (CLEAR,HAZY) Urine pH 6.5 (5.0-8.0) Urine Specific [place] 1.015 (1.003-1.035) Urine Protein Negativemg/dL (NEG,TRACE) Urine Glucose (UA) Negativemg/dL (NEGATIVE) Urine Ketones Negativemg/dL (NEGATIVE) Urine Occult Blood Negative (NEGATIVE) Urine Nitrite Negative (NEGATIVE) Urine Bilirubin Negative (NEGATIVE) Urine Urobilinogen Normalmg/dL (NORMAL) Urine Leukocyte Esterase Negative (NEGATIVE) Urine RBC 0-2/hpf (0-2) Urine WBC 0-5/hpf (0-5) Urine Epithelial Cells Occasional/hpf (NONE-MOD) Urine Crystals None seen (NONE SEEN) Urine Bacteria None/hpf (NONE-FEW) Urine Hyaline Casts None/lpf (NONE) Urine Granular Casts None seen (NONE SEEN) Urine Waxy Casts None seen (NONE SEEN) Urine Red Blood Cell Casts None seen (NONE SEEN) Urine White Blood Cell Casts None seen (NONE SEEN) Urine Mucus None seen (None Seen) Urine Trichomonas None seen (NONE SEEN) Urine Yeast None (NONE SEEN) Urinalysis Comment None Urine Culture Reflexed Not indicated White Blood Count 8.5th/mm3 (3.8-10.1) Red Blood Count 4.82mil/mm3 (4.40-5.80) Mean Corpuscular Volume 82.6fL (81-100) Mean Corpuscular Hemoglobin 28.2pg (27.0-35.0) Mean Corpuscular Hemoglobin Concent 34.2% (32.0-37.0) Red Cell Distribution Width 13.5% (12.3-15.4) Platelet Count 287bil/L (150-400) Neutrophils (%) (Auto) 42.7% (40-74) Lymphocytes (%) (Auto) 35.6% (14-46) Monocytes (%) (Auto) 7.1% (4-12) Eosinophils (%) (Auto) 14.0% (0-5) Basophils (%) (Auto) 0.5% (0-3) Troponin T 0.294ug/L (0.0-0.011) Triglycerides Level 193mg/dL (0-149) Cholesterol Level 320mg/dL (100-199) LDL Cholesterol, Calculated 240.400mg/dL (0-99) VLDL Cholesterol 38.600mg/dL HDL Cholesterol 41mg/dL (>39) Cholesterol/HDL Ratio 7.80 (0.0-4.4) Total Creatine Kinase 100U/L (21-232) Test 05/24/16 04:00 05/24/16 16:05 Hemoglobin 13.1g/dL (13.8-17.2) Hematocrit 38.9% (41.0-50.0) Sodium Level 138mEq/L (134-144) Potassium Level 4.0mEq/L (3.5-5.2) Chloride Level 103mEq/L (97-108) Carbon Dioxide Level 22mmol/L (18-29) Blood Urea Nitrogen 13mg/dL (6-24) Creatinine 0.95mg/dL (0.76-1.27) Estimat Glomerular Filtration Rate 91mL/min (>59) Glucose Level 91mg/dL (60-99) Calcium Level 9.0mg/dL (8.5-10.1) Activated Partial Thromboplast Time 64.2sec (22.8-33.0) Microbiology Results None Discharge Medications Discharge Medications Krill Oil/[place]-3/Dha/Epa (Fish Oil with Krill Softgel) 1 Each Capsule.dr 1 EACH PO DAILY (Reported) REMEMBERS MAYBE 1X/WEEK Multivit with Calcium,Iron,Min (Therapeutic M) 1 Each Tablet 1 EACH PO DAILY ( Reported) REMEMBERS MAYBE 1X/WEEK As needed Acetaminophen (Acetaminophen) 325 Mg Tablet 235-650 MG PO Q4H PRN PRN BACK PAIN (Reported) Followup Plan Disposition: [facility] transfer Time spent 60 minutes Charles Ohara MD May 25, 2016 08:18
== END 2016-05-24 18:49 | disposition short-term general hospital (02) ==
LOC: SED 14:54 → INTOOBSV 17:50 → PCC 17:50
PROVIDERS: ADMIT Hospitalist; ATTEND Hospitalist
PROC: 4A023N7 Measurement of Cardiac Sampling and Pressure, Left Heart, Percutaneous Approach (ICD-10-PCS; principal; 2016-05-23)
PROC: B2111ZZ Fluoroscopy of Multiple Coronary Arteries using Low Osmolar Contrast (ICD-10-PCS; 2016-05-23)
DX: I21.4 Non-ST elevation (NSTEMI) myocardial infarction (principal); I25.119 Atherosclerotic heart disease of native coronary artery with unspecified angina pectoris; I25.82 Chronic total occlusion of coronary artery; Z87.891 Personal history of nicotine dependence; I10 Essential (primary) hypertension; E78.5 Hyperlipidemia, unspecified
CPT/HCPCS: 36415; 71010; 80048; 80053; 80061; 81000; 82550; 82553; 83036; 83735; 84443; 84484; 85014; 85018; 85025; 85730; 93005; 93458; 96361; 96374; 96375; 96376; 99152; 99153; 99285; C1769; C8929; G0378; J1200; J1644; J2060; J2250; J2270; J3010; J7030; Q9967

== ENCOUNTER 2016-06-26 14:40 | Emergency (ER) | payer OTHER ==
[~2016-06-26] VITALS: Ht 170.2 cm; Wt 72.0 kg
[~2016-06-26 14:40] MED LIST: ACET325T51 PO; KRIL1CAP10 PO; MULT-140 PO
[2016-06-26 14:50] VITALS: BP 104/58; PULSE 43; RESP 8; O2SAT 100
--- NOTE | 2016-06-26 15:07 | DRSVH ---
PROCEDURE: X-RAY CHEST ONE VIEW, PORTABLE ([id number]) INDICATIONS: CHEST PAIN TECHNIQUE: One view of the chest was acquired. COMPARISON: None. FINDINGS: Surgical changes and devices: Coronary artery stents. Lungs and pleura: No pleural effusions or pneumothorax. Lungs are clear. Mediastinum: Mediastinal contours appear normal. Heart size is normal. Bones and chest wall: No suspicious bony lesions. Overlying soft tissues appear unremarkable. IMPRESSION: No acute cardiopulmonary abnormality Dictated by: Simon Lange M.D. on 06/26/2016 at 15:05 Approved by: Simon Lange M.D. on 06/26/2016 at 15:06
--- NOTE | 2016-06-26 15:09 | ED.REPORT ---
HPI-Chest Pain 40 and Over Date of Service Jun 26, 2016 ED Provider: Gerardo Soto MD 45 year old male with a history of NSTEMI (May 2016- 1 month ago) s/p stenting x3 who presents to the ER with sharp L sided chest discomfort since 0900 this morning approximately 6 hours ago. Pt was taking a shower when the pain started and lasted a minute before resolving without any recurrence. Associated symptoms include fatigue. He believes that his fatigue may be attributed to recently starting metoprolol 25mg. He was also started on Atorvastatin 40mg, Aspirin 81mg, clopidogrel 75mg and nitroglycerin 0.4 PRN after his UT. Pt denies SOB, radiation of pain and pain with exertion or movement. This pain does not feel like his previous UT. His states that he had the pain yesterday as well. Nail Technician Teacher: Simin Nursing Notes Stated Complaint: LOW BP Chief Complaint: Chest Pain Nursing Notes Reviewed: Yes Allergies: Coded Allergies: No Known Allergies (Unverified , 06/26/16) Scheduled Aspirin (Aspirin) 81 Mg Tablet 81 MG PO DAILY Atorvastatin (Lipitor) 40 Mg Tablet 40 MG PO HS Clopidogrel Bisulfate (Plavix) 75 Mg Tablet 75 MG PO DAILY Krill Oil/[place]-3/Dha/Epa (Fish Oil with Krill Softgel) 1 Each Capsule.dr 1 EACH PO DAILY REMEMBERS MAYBE 1X/WEEK Metoprolol Tartrate (Metoprolol Tartrate) 25 Mg Tablet 25 MG PO am Multivit with Calcium,Iron,Min (Therapeutic M) 1 Each Tablet 1 EACH PO DAILY REMEMBERS MAYBE 1X/WEEK Scheduled PRN Acetaminophen (Acetaminophen) 325 Mg Tablet 235-650 MG PO Q4H PRN PRN BACK PAIN Nitroglycerin SL (Nitroglycerin SL) 0.4 Mg Tab.subl 0.4 MG SL PRN For Chest Pain General Time Seen by MD: 15:07 Chief Complaint Chest pain Hx Obtained From: Patient, Spouse Arrived By: Walk-in Sudden in Onset?: Yes Onset Occurred: 5 - 8 hours ago Symptom Duration: 1 - 15 minutes Location: : Chest left Quality: Painful, Sharp Radiation: : Does not radiate Migration/Movement: Reports: None Severity: Current: No pain currently Severity: Maximum: Severe Associated with: Denies: Fever, Shortness of Breath, Vomiting Pertinent Negative: Exacerbated by nothing, Relieved by nothing Risk Factors )( CAD Risk Stratification Risk factors reviewed )( TAD Risk Stratification Risk factors reviewed )( PE Risk Stratification Risk factors reviewed Past Medical History Past Medical History Notes: Nail Technician Teacher: Simin Past Medical History Reports: Coronary artery disease, Hyperlipidemia, Hypertension Past Surgical History May 2016 had STEMI with 3 stents performed at [facility] Family History Noncontributory Smoking History Former Smoker Social History Alcohol Use: "Social" Drug Use: Denies drug use Other Social History: Good social support, , Local resident Ambulatory Status Independent Review of Systems Basic Review of Systems Eyes: Vision NL, No discharge ENT: Hearing NL, No pain, No nasal congestion, No pharyngeal pain Constitutional: Reports: Fatigue, Denies: Fever Respiratory: Denies: Non-productive cough, Shortness of breath Cardiovascular: Reports: Chest pain, Denies: Edema Complete sys rev & neg: except as marked. Physical Exam Initial Vital Signs Vital Signs (First) Date Time Temp Pulse Resp B/P Pulse Ox O2 Delivery O2 Flow Rate FiO2 06/26/16 14:50 36.5 43 8 104/58 100 Room Air Initial VS: Reviewed Head / Eyes: Atraumatic, Normocephalic, PERRL ENT: Mucous membranes moist, Conjunctiva normal, No scleral icterus Neck: Supple, Non-tender, Full range of motion Extremities: Vascular intact, Neuro intact, No swelling (at calves), No tenderness (at calves) Skin: Warm, Dry, No cyanosis Neurologic: Alert, Oriented, Nonfocal Psychiatric: Mood/affect normal, Behavior normal, Normal thought content General/Constitutional: Awake, Alert, Cooperative Respiratory / Chest: Breath sounds NL, Breath sounds = bilat, No respiratory distress, No rales, No rhonchi, No wheezing, No stridor, No chest tenderness Cardiovascular: Heart rate NL, Regular rhythm, Heart sounds NL, No gallop, No murmurs, No rubs, Cap refill not delayed, Peripheral circulation NL, Pulses = bilaterally Abdomen: Soft, Non-tender, No distention Interpretation & Diagnostics Lab Results Interpretation Result Diagram: 06/26/16 1500 06/26/16 1500 Test 06/26/16 15:00 06/26/16 18:35 White Blood Count 9.7th/mm3 (3.8-10.1) Red Blood Count 4.58mil/mm3 (4.40-5.80) Hemoglobin 12.8g/dL (13.8-17.2) Hematocrit 38.4% (41.0-50.0) Mean Corpuscular Volume 83.8fL (81-100) Mean Corpuscular Hemoglobin 27.9pg (27.0-35.0) Mean Corpuscular Hemoglobin Concent 33.3% (32.0-37.0) Red Cell Distribution Width 12.8% (12.3-15.4) Platelet Count 278bil/L (150-400) Neutrophils (%) (Auto) 52.8% (40-74) Lymphocytes (%) (Auto) 32.8% (14-46) Monocytes (%) (Auto) 7.5% (4-12) Eosinophils (%) (Auto) 6.2% (0-5) Basophils (%) (Auto) 0.5% (0-3) Sodium Level 139mEq/L (134-144) Potassium Level 4.3mEq/L (3.5-5.2) Chloride Level 102mEq/L (97-108) Carbon Dioxide Level 22mmol/L (18-29) Blood Urea Nitrogen 9mg/dL (6-24) Creatinine 0.93mg/dL (0.76-1.27) Estimat Glomerular Filtration Rate 93mL/min (>59) Glucose Level 90mg/dL (60-99) Calcium Level 9.8mg/dL (8.5-10.1) Magnesium Level 2.0mg/dL (1.6-2.6) Total Bilirubin 0.3mg/dL (0.0-1.2) Aspartate Amino Transf (AST/SGOT) 15U/L (0-50) Alanine Aminotransferase (ALT/SGPT) 17U/L (0-44) Alkaline Phosphatase 83U/L (25-150) Total Creatine Kinase 122U/L (21-232) Creatine Kinase MB 1.6ng/mL (0.0-10.4) Creatine Kinase MB % % (0.0-5.0) Total Protein 7.8g/dL (6.4-8.4) Albumin 4.2g/dL (3.4-5.0) Hold Quinones Top Tube Received (Received) Troponin T < 0.010ug/L (0.0-0.011) ECG Interpretation ECG Interpretation: Sinus shayy at rate 48. Abnormal R wave progression. Borderline ST elevation of 1mm or less in anterolateral lead when compared to prior dated 05/23/2016 biphasic appearing T waves and ST depression in lateral leads are now resolved. T waves are now upright. Time: 14:53 Interpreted by: ED physician Normal ECG Interpretation: Normal axis, Normal intervals ECG Interpretation: 15 mnutes after initial ECG- no evolving ischemic changes. Time: 15:11 Interpreted by: ED physician X-Ray Chest Interpretation Chest Xray Interpretation: IMPRESSION: No acute cardiopulmonary abnormality Dictated by: Simon Lange M.D. on 06/26/2016 at 15:05 View: Portable, 1 view Interpretation / Wet Read by: Interpret - Radiologist Re-Eval/Medical Decision Med Decision/Clinical Course 45 year old male with a history of NSTEMI (May 2016- 1 month ago) s/p stenting x3 who presents to the ER with sharp L sided chest discomfort since 0900 this morning approximately 6 hours ago. Pt was taking a shower when the pain started and lasted a minute before resolving without any recurrence. Associated symptoms include fatigue. He believes that his fatigue may be attributed to recently starting metoprolol 25mg. He was also started on Atorvastatin 40mg, Aspirin 81mg, clopidogrel 75mg and nitroglycerin 0.4 PRN after his UT. Pt denies SOB, radiation of pain and pain with exertion or movement. This pain does not feel like his previous UT. The pain is sharp. His states that he had the pain yesterday as well. Nail Technician Teacher: Simin Here in the emergency department the patient is bradycardic with heart rate in the 40s so otherwise afebrile, hemodynamically stable and in no apparent distress. Reviewed d/c summary dated May 25, 2016 approx 1 month ago, d/c with 1. NSTEMI. 2. CAD with an acute stenosis of the circumflex artery and a chronic occlusion of the LAD with collateralization. He was transferred to [facility] for PCI. Records from outside facility have been requested but are not available at this time- 15:49 ECG- Sinus shayy at rate 48. Normal axis and intervals. Abnormal R wave progression. Borderline ST elevation of 1mm or less in anterolateral lead when compared to prior dated 05/23/2016 biphasic appearing T waves and ST depression in lateral leads are now resolved. T waves are now upright. CXR: Obtained, reviewed and interpreted by myself shows no evidence of infiltrates, effusions or pneumothorax. Cardiac and mediastinal silhouette normal. No bony or soft tissue abnormalities. Laboratory studies reviewed as below: CBC unremarkable Troponin negative, repeat troponin negative. CMP unremarkable I considered acute coronary syndrome in this patient. That being said, the pain was sharp, lasted about 1 minute and was not in any way similar to his previous cardiac chest pain. Initial screening EKG and troponin are relatively unremarkable. Serial EKGs demonstrate no evolving ischemic changes. He is chest pain-free here in the emergency department and his artery had aspirin prior to arrival. While the patient does report an episode of chest pain primary complaint today is that he is been feeling very fatigued and tired and attributes this to taking his morning metoprolol dose. He was somewhat hypotensive prior to arrival and here is in sinus bradycardia. I find it quite likely that he is vague constellation of symptoms are related to his metoprolol. The nature of his chest pain was quite brief in nature and etiology is unclear. Patient was discussed in depth with cardiology Dr. Zurita. He agrees that the patient's presentation is likely related to metoprolol and requests that we stop the metoprolol. He suggested we Obtain a repeat troponin here in the emergency department and if negative discharge the patient to follow-up in cardiology clinic as an outpatient. Here in the emergency room the patient remained chest pain-free and in no apparent distress. Repeat troponin was negative. Note on further questioning the patient does report that he had similar symptoms previously related to his metoprolol and that when it was held for a day that he felt significantly better. At this time there is no evidence of acute pulmonary embolism, pneumothorax, pneumonia or aortic dissection. Patient will follow up closely with his health educator and will hold the metoprolol as directed. Prior to discharge follow-up and return precautions were reviewed in detail with the patient who verbalized understanding and agreement with the plan. The patient was discharged in stable condition. Time of Eval: 15:40 Re-Evaluation/Progress Note: Pt updated. Was able to provide a list of medications. Time of Eval: 17:05 Re-Evaluation/Progress Note: Rechecked pt. updated of plan for repeat troponin. Time of Eval: 19:25 Re-Evaluation/Progress Note: Updated pt of labs, ECG and imaging results. Discussed plan for discharge and follow up. All questions addressed. Consultation : Referral / Consult Name: Radha Zurita MD Consulted With: Cardiology Call Returned at: 15:58 Note: Agrees is likely related to metoprolol. Request repeat troponin in 3 hours. If those are negative recommends d/c patient, stop metoprolol and f/u with cardiology and PCP in 1 week. Counseled Regarding: Diagnosis, Lab results, Need for follow-up, When/why to return to ED Discharge & Departure Primary Impression: Sinus bradycardia Additional Impressions: Adverse reaction to metoprolol Encounter type: initial encounter Qualified Code: T44.7X5A - Adverse effect of beta-adrenoreceptor antagonists, initial encounter Chest wall pain History of coronary artery disease History of heart artery stent Fatigue Fatigue type: unspecified Qualified Code: R53.83 - Other fatigue Disposition: Home Discharge Condition All VS Reviewed: Yes Condition: Improved Thank you for seeking care at the emergency room. You were seen today because you have had fatigue and a brief episode of chest pain this morning. Our primary goal today in the ED was to evaluate you for any life-threatening conditions. Your evaluation was reassuring. I discussed her case with her health educator and our assessment is that your fatigue is related to the metoprolol that you have been taking, stopped taking this medication but continue all of your other meds. We do not see any evidence that you have had a heart attack today. You should follow-up with your primary doctor and health educator next week. You should return to the ED immediately if you develop any recurrent chest pain, lightheadedness, fatigue, passing out, fevers, vomiting, cough, shortness of breath, lightheadedness, weakness or any other concerning signs or symptoms. Thank you for letting us partake in your care today. Referrals: Francisco Cage MD (PCP) Mira Duval MD Attestation Portions of this note were transcribed by Audrey Rodrigez. I, (Dr. Gerardo Soto ) personally performed the history, physical exam and medical decision-making; I reviewed and confirmed the accuracy of the information in the transcribed note. Signed by: Audrey Rodrigez. [place], 06/26/2016, [id number] copies to: Francisco Cage MD; Mira Duval MD, Beck O MD Jun 26, 2016 15:09 Audrey Rodrigez Jun 26, 2016 15:19
[2016-06-26 15:10] VITALS: BP 91/56; PULSE 42
[2016-06-26 15:12] LABS: BASOPHILS % (AUTO) 0.5 % (0-3); EOSINOPHILS % (AUTO) 6.2 % (0-5); MONOCYTES % (AUTO) 7.5 % (4-12); Mean Corpuscular Hemoglobin 27.9 pg (27.0-35.0); Mean Corpuscular Volume 83.8 fL (81-100); NEUTROPHILS % (AUTO) 52.8 % (40-74); Platelet Count 278 bil/L (150-400)
[2016-06-26 15:24] VITALS: BP 105/67; PULSE 46
[2016-06-26 15:39] LABS: TROPONIN T < 0.010 ug/L (0.0-0.011)
[2016-06-26] MEDS ORDERED: ASPI-973 PO (16:12)
[2016-06-26] MEDS ORDERED: NITR0.4T6 SL (16:12)
[2016-06-26] MEDS ORDERED: CLOP75TA3 PO (16:12)
[2016-06-26] MEDS ORDERED: METO25TA6 PO (16:12)
[2016-06-26] MEDS ORDERED: LIP40 PO (16:12)
[2016-06-26 16:32] LABS: Creatine Kinase 122 U/L (21-232)
[2016-06-26 16:57] VITALS: BP 104/59; PULSE 44; RESP 14; O2SAT 95
[2016-06-26 18:22] VITALS: BP 99/52; PULSE 52; RESP 16; O2SAT 98
[2016-06-26 19:36] VITALS: BP 95/45; PULSE 61; RESP 12; O2SAT 99
== END 2016-06-26 19:37 | disposition home or self-care (01) ==
LOC: SED 14:40
DX: T44.7X5A Adverse effect of beta-adrenoreceptor antagonists, initial encounter (principal); R00.1 Bradycardia, unspecified; R53.83 Other fatigue; R07.89 Other chest pain; X58.XXXA Exposure to other specified factors, initial encounter; Y93.E1 Activity, personal bathing and showering; Y92.9 Unspecified place or not applicable; Y99.9 Unspecified external cause status; I10 Essential (primary) hypertension; I25.10 Atherosclerotic heart disease of native coronary artery without angina pectoris; E78.5 Hyperlipidemia, unspecified; I25.2 Old myocardial infarction; Z87.891 Personal history of nicotine dependence; Z79.82 Long term (current) use of aspirin; Z79.899 Other long term (current) drug therapy